=== PATIENT | female | born 1975 | race Caucasian/White ===

== ENCOUNTER → 2019-06-19 | Outpatient (CLI) | payer BC ==
--- NOTE | 2019-06-19 11:27 | Diagnostic Imaging Report ---
PROCEDURE: MRI left upper extremity without contrast. TECHNIQUE: Multiplanar, multisequence non contrast-enhanced MRI of the left upper extremity was accomplished. INDICATION: Left upper arm pain. COMPARISON: There are no prior studies available for comparison. FINDINGS: The T2 fat-saturated coronal series fails to show any abnormal signal within the rotator cuff that would indicate a tear. The supraspinatus muscle is not retracted or bunched either. There is slight hypertrophy of the acromioclavicular joint and there may be very mild narrowing of the outlet for the supraspinatus muscle. The labrum is thinned centrally and there are sublabral cysts present. I do believe the labrum is severely torn on a degenerative basis. The biceps tendon and the subscapularis tendon are intact. There is no abnormal signal arising from the osseous structures to suggest bone edema or a fracture. There is no sign of a joint effusion either. On the proton-density axial series, there is slightly increased signal in the soft tissues of the upper chest wall on the left. I suspect this is due to mild edema/inflammation. If further evaluation of the extent of the injury to the musculature in the upper chest wall on the left is desired, then MRI of the chest would be recommended. IMPRESSION: 1. There is no evidence for a tear of the rotator cuff and the supraspinatus muscle is not retracted or bunched. 2. The labrum is severely torn centrally. Most likely, this is longstanding in nature. 3. There is slight hypertrophy of the acromioclavicular joint but there is no significant narrowing of the outlet for the supraspinatus muscle. 4. The abnormal signal in the musculature of the upper thorax on the left does suggest mild edema/inflammation. Additional considerations, as above. Dictated by: Dictated on workstation # [id number]
== END ==
LOC: RAD 09:08
PROVIDERS: ATTEND Nurse Practitioner Family
DX: M24.112 Other articular cartilage disorders, left shoulder (principal)
CPT/HCPCS: 73218